=== PATIENT | male | born 1925 | race Caucasian/White ===

== ENCOUNTER 2017-02-12 00:53 | Emergency (ER) | payer MEDICARE, BC ==
[~2017-02-12] VITALS: Ht 175.3 cm; Wt 66.8 kg
[~2017-02-12 00:53] MED LIST: ADVAIR IH; ALLOPURINOL300 MG PO; AMBIEN 5MG TABLE5 MG PO; ASPIRIN 32325 MG/TAB PO; ASPIRIN 81M81 MG/TA2 PO; CEFTIN250 M1 PO; CEFTIN500 MG PO; CEPHALEXIN500 M1 PO; CLARITIN PO; CLEOCIN HCL300 MG PO; DESYREL 50MG50 MG PO; DIOVAN; FERROUS SULFATE65 MG PO; FLOMAX 0.40.4 MG/CAP PO; FOLIC ACID0.4 MG PO; HCTZ; HCTZ 25MG TAB25 MG PO; LEXAPRO 10MG10 MG PO; LOTRISONE 0.05%1 CRE TP; LOTRISONE CREAM15 GM TP; MIRALAX PA17 GM/Dose PO; MOTRIN 800800 MG/TAB PO; NORCO 325 MG-51 TAB PO; OMNICEF 300MG300 MG PO; PERCOCET 325 MG1 TA2 PO; PLAVIX 75MG TAB75 MG PO; PRAVACHOL 40MG40 MG PO; PRAVACHOL10 MG PO; PREDNISONE20 MG PO; PROVENTIL0.09 MG/A1 IH; RESTORIL 77.5 MG/CAP PO; RT ADVAIR 228 DISKUS IH; RT SPIRIVA18 MCG IH; SIMVISTATIN; SINGULAIR; SINGULAIR 110 MG/TAB PO; SINGULAIR10 MG PO; TOFRANIL 10MG T10 MG PO; TRIMETHOPRIM100 MG PO; TYLENOL 500MG500 MG PO; ULTRAM 50MG TAB50 MG PO; VITAMIN B-6100 MG PO; VITAMIN B6100 MG PO; VITAMIN C500 MG PO; XANAX .25M0.25 MG/TA PO; ZYLOPRIM 300MG300 MG PO
[2017-02-12 00:56] VITALS: TEMP 97.5
[2017-02-12 02:18] VITALS: BP 141/71; PULSE 69
== END 2017-02-12 02:20 | disposition home or self-care (01) ==
LOC: COL.ER 00:53
DX: S41.111A Laceration without foreign body of right upper arm, initial encounter (principal); S09.90XA Unspecified injury of head, initial encounter; S01.01XA Laceration without foreign body of scalp, initial encounter; W22.01XA Walked into wall, initial encounter; Y92.008 Other place in unspecified non-institutional (private) residence as the place of occurrence of the external cause; J44.9 Chronic obstructive pulmonary disease, unspecified; I10 Essential (primary) hypertension; R40.2422 Glasgow coma scale score 9-12, at arrival to emergency department; Z91.81 History of falling

== ENCOUNTER 2017-03-08 13:28 | Outpatient (CLI) | payer MEDICARE, BC ==
[~2017-03-08] VITALS: Ht 175.3 cm; Wt 68.0 kg
[2017-03-08 14:00] VITALS: BP 151/60; PULSE 83; TEMP 97.3
[2017-03-08 14:03] LABS: MEAN CELL VOLUME 95 fl (80.0-100.0); MEAN CORPUSCULAR HGB CONC 33 g/dl (33.0-37.0); PLATELET COUNT 118 K/mm3 (130-400); RED BLOOD COUNT 3.69 M/mm3 (4.20-5.60); REDCELL DISTRIBUTION WIDTH-CV 13.2 % (11.5-14.5); WHITE BLOOD COUNT 8.4 K/mm3 (4.8-10.8)
[2017-03-08 14:10] LABS: HEMATOCRIT 35.2 % (42.0-52.0); HEMOGLOBIN 11.5 g/dl (13.5-18.0); MEAN CORPUSCULAR HEMOGLOBIN 31 pg (27.0-31.0)
[2017-03-08 14:11] LABS: CALCIUM 9.4 mg/dL (8.4-10.2); CREATININE, serum 1.36 mg/dL (0.66-1.25); POTASSIUM 4.1 mmol/L (3.4-5.0)
[2017-03-08] MEDS ORDERED: LOPRESSOR 225 MG/TAB PO (16:22)
[2017-03-08] MEDS ORDERED: METAMUCIL3.4 GM/DOS PO (16:23)
[2017-03-08] MEDS ORDERED: MIRALAX PA17 GM/Dose PO (16:24)
== END 2017-03-08 18:47 | disposition home or self-care (01) ==
LOC: EUO 13:28
PROVIDERS: Internal Medicine
DX: Z01.89 Encounter for other specified special examinations (principal)
CPT/HCPCS: J7040

== ENCOUNTER 2017-03-12 12:33 | Emergency (ER) | payer MEDICARE, BC ==
[~2017-03-12] VITALS: Ht 175.3 cm; Wt 75.0 kg
[~2017-03-12 12:33] MED LIST changes: +LOPRESSOR 225 MG/TAB PO; +METAMUCIL3.4 GM/DOS PO
[2017-03-12 12:40] VITALS: TEMP 97.4
[2017-03-12] MEDS ORDERED: ZYLOPRIM 300MG300 MG PO (13:11)
[2017-03-12] MEDS ORDERED: ASPIRIN 81M81 MG/TA2 PO (13:11)
[2017-03-12] MEDS ORDERED: RT ADVAIR 228 DISKUS IH (13:12)
[2017-03-12] MEDS ORDERED: LEXAPRO 10MG10 MG PO (13:12)
[2017-03-12] MEDS ORDERED: LOPRESSOR 225 MG/TAB PO (13:12)
[2017-03-12] MEDS ORDERED: FLOMAX 0.40.4 MG/CAP PO (13:13)
[2017-03-12] MEDS ORDERED: PRAVACHOL 40MG40 MG PO (13:13)
[2017-03-12] MEDS ORDERED: SINGULAIR 110 MG/TAB PO (13:13)
[2017-03-12 13:14] LABS: ARTERIAL BLD GAS O2 SATURATION 94.9 % (92-100); ARTERIAL BLD GAS TCO2 CT 24.9; ARTERIAL BLOOD GAS BASE EXCESS -0.5 (-2-2); ARTERIAL BLOOD GAS HCO3 23.7 meq/L (22-26); ARTERIAL BLOOD GAS PHT 7.42 C (7.35-7.45); ARTERIAL BLOOD GAS PO2 79.4 mmHg (80-100); ARTERIAL BLOOD GAS PO2T 79.4 (80-100); ARTERIAL BLOOD GAS pH 7.42 (7.35-7.45)
[2017-03-12] MEDS ORDERED: DESYREL 50MG50 MG PO (13:14)
[2017-03-12 13:15] LABS: ATS? YES
[2017-03-12 13:23] LABS: BASO % 0.3 % (0.0-2.0); EOS # 0.4 (0.0-0.7); EOS % 5.9 % (0-4.0); GRAN # 4.8 (1.4-6.5); GRAN % 69.1 % (42.2-75.2); LYMPH # 1.1 (1.2-3.4); LYMPH % 15.9 % (20.0-51.0); MEAN CELL VOLUME 95 fl (80.0-100.0); MEAN CORPUSCULAR HGB CONC 32 g/dl (33.0-37.0); MEAN PLATELET VOLUME 11.5 fl (7.4-10.4); MONO # 0.6 (0.1-0.6); MONO % 8.5 % (1.7-9.3); PLATELET COUNT 112 K/mm3 (130-400); RED BLOOD COUNT 3.54 M/mm3 (4.20-5.60); REDCELL DISTRIBUTION WIDTH-CV 13.1 % (11.5-14.5)
[2017-03-12 13:25] LABS: HEMATOCRIT 33.7 % (42.0-52.0); HEMOGLOBIN 10.8 g/dl (13.5-18.0); MEAN CORPUSCULAR HEMOGLOBIN 31 pg (27.0-31.0)
[2017-03-12 13:28] LABS: ADJUSTED CALCIUM 9.5 mg/dL (8.4-10.2); ALBUMIN 3.4 gm/dL (3.5-5.0); BILIRUBIN,TOTAL 0.9 mg/dL (0.0-1.0); CREATININE, serum 1.27 mg/dL (0.66-1.25)
[2017-03-12 14:58] LABS: PH 7 (5-8); SQUAMOUS EPITHELIAL None Seen /hpf; URINE APPEARANCE Clear; URINE BACTERIA None Seen /hpf; URINE BILIRUBIN Negative (NEGATIVE); URINE BLOOD 3+ (NEGATIVE); URINE COLOR Yellow; URINE GLUCOSE Negative (NEGATIVE); URINE KETONE Negative (NEGATIVE); URINE RBC >50 /hpf; URINE UROBILINOGEN Negative (NEGATIVE)
[2017-03-12 14:59] LABS: URINE WBC 20-50 /hpf
[2017-03-12 16:25] VITALS: BP 175/95; PULSE 78
== END 2017-03-12 16:30 | disposition home or self-care (01) ==
LOC: COL.ER 12:33
PROVIDERS: Family Medicine
DX: E86.0 Dehydration (principal); R53.1 Weakness; R31.9 Hematuria, unspecified; I35.0 Nonrheumatic aortic (valve) stenosis; N40.1 Benign prostatic hyperplasia with lower urinary tract symptoms; R33.8 Other retention of urine
CPT/HCPCS: J7030

== ENCOUNTER 2017-04-11 21:36 | Inpatient (IN) | payer MEDICARE, BC ==
[~2017-04-11] VITALS: Ht 172.7 cm; Wt 62.5 kg
[2017-04-11 22:24] LABS: VENOUS BLOOD GAS BE 2.4 (-4-4); VENOUS BLOOD GAS SAO2 51.6 % (60-80)
[2017-04-11 22:25] LABS: VENOUS BLOOD GAS SITE VENIPUNCTURE
[2017-04-11 22:28] LABS: MEAN CELL VOLUME 93 fl (80.0-100.0); MEAN CORPUSCULAR HGB CONC 33 g/dl (33.0-37.0); MEAN PLATELET VOLUME 11.3 fl (7.4-10.4); PLATELET COUNT 153 K/mm3 (130-400); RED BLOOD COUNT 3.09 M/mm3 (4.20-5.60); REDCELL DISTRIBUTION WIDTH-CV 13.8 % (11.5-14.5)
[2017-04-11 22:30] LABS: HEMATOCRIT 28.8 % (42.0-52.0); HEMOGLOBIN 9.4 g/dl (13.5-18.0); MEAN CORPUSCULAR HEMOGLOBIN 30 pg (27.0-31.0)
[2017-04-11 22:31] LABS: ADD PATHOLOGY DIFF REVIEW NO
[2017-04-11 22:41] LABS: ADJUSTED CALCIUM 9.6 mg/dL (8.4-10.2); ALBUMIN 3.2 gm/dL (3.5-5.0); BILIRUBIN,TOTAL 0.8 mg/dL (0.0-1.0); CREATININE, serum 1.57 mg/dL (0.66-1.25); POTASSIUM 4.2 mmol/L (3.4-5.0)
[2017-04-11 22:46] LABS: BAND 23 % (0-10); NEUTROPHILS 60 % (42.0-75.2); TOTAL CELLS COUNTED 100
[2017-04-11 22:47] LABS: ERYTHROCYTE SEDIMENTATION RATE 65 mm/hr (0-30)
[2017-04-11 22:56] LABS: TROPONIN-I 0.058 ng/mL (0.000-0.034)
[2017-04-11 23:02] LABS: C-REACTIVE PROTEIN 11.1 mg/dL (0.0-0.9)
[2017-04-11 23:25] LABS: PH 5 (5-8); SQUAMOUS EPITHELIAL 0-2 /hpf; URINE APPEARANCE Cloudy; URINE BACTERIA Many /hpf; URINE BILIRUBIN Negative (NEGATIVE); URINE BLOOD 3+ (NEGATIVE); URINE COLOR Amber; URINE GLUCOSE Negative (NEGATIVE); URINE KETONE Negative (NEGATIVE); URINE RBC >50 /hpf; URINE WBC >50 /hpf
[2017-04-12] VITALS (7 sets, daily range): BP systolic 117–148; BP diastolic 46–73; PULSE 40–103; TEMP 97.6–100.1
[2017-04-12 07:05] LABS: BASO # 0.1 (0.0-0.2); BASO % 0.4 % (0.0-2.0); EOS # 0.4 (0.0-0.7); EOS % 2.6 % (0-4.0); GRAN # 10.2 (1.4-6.5); GRAN % 74.9 % (42.2-75.2); LYMPH % 14.4 % (20.0-51.0); MEAN CELL VOLUME 96 fl (80.0-100.0); MEAN CORPUSCULAR HGB CONC 31 g/dl (33.0-37.0); MEAN PLATELET VOLUME 11.7 fl (7.4-10.4); MONO % 7.1 % (1.7-9.3); PLATELET COUNT 141 K/mm3 (130-400); REDCELL DISTRIBUTION WIDTH-CV 13.8 % (11.5-14.5); WHITE BLOOD COUNT 13.6 K/mm3 (4.8-10.8)
[2017-04-12 07:06] LABS: HEMATOCRIT 27.8 % (42.0-52.0); HEMOGLOBIN 8.7 g/dl (13.5-18.0); MEAN CORPUSCULAR HEMOGLOBIN 30 pg (27.0-31.0)
[2017-04-12 07:18] LABS: ADJUSTED CALCIUM 9.6 mg/dL (8.4-10.2); ALBUMIN 2.7 gm/dL (3.5-5.0); BILIRUBIN,TOTAL 0.7 mg/dL (0.0-1.0); CALCIUM 8.6 mg/dL (8.4-10.2); CREATININE, serum 1.43 mg/dL (0.66-1.25); TOTAL PROTEIN 6.1 gm/dL (6.4-8.2)
[2017-04-13] VITALS (7 sets, daily range): BP systolic 126–220; BP diastolic 47–80; PULSE 42–98; TEMP 97.9–98.5
[2017-04-13 07:30] LABS: BASO % 0.4 % (0.0-2.0); EOS # 0.2 (0.0-0.7); EOS % 2.5 % (0-4.0); GRAN # 6.7 (1.4-6.5); LYMPH % 11.6 % (20.0-51.0); MEAN CELL VOLUME 94 fl (80.0-100.0); MEAN CORPUSCULAR HGB CONC 32 g/dl (33.0-37.0); MEAN PLATELET VOLUME 11.7 fl (7.4-10.4); MONO # 0.6 (0.1-0.6); MONO % 6.9 % (1.7-9.3); PLATELET COUNT 143 K/mm3 (130-400); RED BLOOD COUNT 3.03 M/mm3 (4.20-5.60); REDCELL DISTRIBUTION WIDTH-CV 13.5 % (11.5-14.5); WHITE BLOOD COUNT 8.6 K/mm3 (4.8-10.8)
[2017-04-13 07:34] LABS: HEMATOCRIT 28.5 % (42.0-52.0); MEAN CORPUSCULAR HEMOGLOBIN 30 pg (27.0-31.0)
[2017-04-13 07:43] LABS: CALCIUM 8.5 mg/dL (8.4-10.2); CREATININE, serum 1.07 mg/dL (0.66-1.25); POTASSIUM 3.8 mmol/L (3.4-5.0)
[2017-04-14] VITALS (7 sets, daily range): BP systolic 122–180; BP diastolic 49–73; PULSE 38–84; TEMP 98.2–98.9
[2017-04-14 07:25] LABS: HEMATOCRIT 27.8 % (42.0-52.0); HEMOGLOBIN 8.9 g/dl (13.5-18.0); MEAN CELL VOLUME 93 fl (80.0-100.0); MEAN CORPUSCULAR HEMOGLOBIN 30 pg (27.0-31.0); MEAN CORPUSCULAR HGB CONC 32 g/dl (33.0-37.0); MEAN PLATELET VOLUME 11.3 fl (7.4-10.4); PLATELET COUNT 141 K/mm3 (130-400); RED BLOOD COUNT 2.98 M/mm3 (4.20-5.60); REDCELL DISTRIBUTION WIDTH-CV 13.4 % (11.5-14.5); WHITE BLOOD COUNT 6.7 K/mm3 (4.8-10.8)
[2017-04-14 07:26] LABS: ADD PATHOLOGY DIFF REVIEW NO
[2017-04-14 07:38] LABS: CALCIUM 8.6 mg/dL (8.4-10.2); CREATININE, serum 1.01 mg/dL (0.66-1.25); POTASSIUM 3.5 mmol/L (3.4-5.0)
[2017-04-14 08:12] LABS: BAND 9 % (0-10); EOSINOPHIL 11 % (0-4); METAMYELOCYTE 1 % (0-0); NEUTROPHILS 53 % (42.0-75.2); PLATELET ESTIMATE NORMAL (NORMAL); TOTAL CELLS COUNTED 100
[2017-04-15] VITALS (8 sets, daily range): BP systolic 126–179; BP diastolic 52–81; PULSE 41–113; TEMP 97.5–98.5
[2017-04-16 04:06] VITALS: BP 114/77; BP 161/60; PULSE 77; PULSE 80; TEMP 98.2; TEMP 98.7
[2017-04-16 08:23] VITALS: BP 144/52; PULSE 63; TEMP 97.4
[2017-04-16] MEDS ORDERED: MONUROL 3 GM3 G/PKT PO (09:16)
[2017-04-16 10:36] VITALS: BP_SYST 8.04
== END 2017-04-16 12:08 | DRG 871 ==
LOC: COL.ER 21:36 → MEDICAL 23:55
PROVIDERS: Emergency Medicine; Family Medicine; Physician Assistant
DX: A41.89 Other specified sepsis (principal); I21.4 Non-ST elevation (NSTEMI) myocardial infarction; N39.0 Urinary tract infection, site not specified; J96.11 Chronic respiratory failure with hypoxia; E44.0 Moderate protein-calorie malnutrition; B96.1 Klebsiella pneumoniae [K. pneumoniae] as the cause of diseases classified elsewhere; Z95.2 Presence of prosthetic heart valve; J44.9 Chronic obstructive pulmonary disease, unspecified; J45.909 Unspecified asthma, uncomplicated; Z87.891 Personal history of nicotine dependence; F03.90 Unspecified dementia, unspecified severity, without behavioral disturbance, psychotic disturbance, mood disturbance, and anxiety; N18.9 Chronic kidney disease, unspecified; D64.9 Anemia, unspecified
CPT/HCPCS: 99223-AI; 99232-AI; 99233-AI; 99239; J1650; J2185; J7030

== ENCOUNTER → 2017-04-25 | Outpatient (REF) ==
[~2017-04-25] MED LIST changes: +LEXAPRO20 MG PO; +MONUROL 3 GM3 G/PKT PO; +NYAMYC100000 U/G TP; +PROAMATINE10 MG PO; +WELLBUTRIN 75MG75 MG PO
[2017-04-25 17:21] LABS: PH 6 (5-8); SQUAMOUS EPITHELIAL 0-2 /hpf; URINE APPEARANCE Clear; URINE BACTERIA None Seen /hpf; URINE BILIRUBIN Negative (NEGATIVE); URINE BLOOD 3+ (NEGATIVE); URINE COLOR Yellow; URINE GLUCOSE Negative (NEGATIVE); URINE KETONE Negative (NEGATIVE); URINE RBC 20-50 /hpf; URINE UROBILINOGEN Negative (NEGATIVE)
[2017-04-25 17:24] LABS: URINE WBC 20-50 /hpf
== END ==
LOC: ZCOL.LAB 17:09
DX: Z01.89 Encounter for other specified special examinations (principal)

== ENCOUNTER → 2017-05-01 | Outpatient (REF) | LOC: ZCOL.LAB 23:11 | DX: Z01.89 Encounter for other specified special examinations (principal) ==

== ENCOUNTER 2017-05-23 01:02 | Emergency (ER) | payer MEDICARE, BC ==
[~2017-05-23] VITALS: Ht 172.7 cm; Wt 68.2 kg
[~2017-05-23 01:02] MED LIST changes: -LEXAPRO20 MG PO; -NYAMYC100000 U/G TP; -PROAMATINE10 MG PO; -WELLBUTRIN 75MG75 MG PO
[2017-05-23 01:04] VITALS: TEMP 97.1
[2017-05-23 01:37] LABS: BASO % 0.5 % (0.0-2.0); EOS # 0.4 (0.0-0.7); EOS % 4.2 % (0-4.0); GRAN # 6.5 (1.4-6.5); GRAN % 73.7 % (42.2-75.2); LYMPH # 1.2 (1.2-3.4); LYMPH % 13.4 % (20.0-51.0); MEAN CELL VOLUME 94 fl (80.0-100.0); MEAN CORPUSCULAR HGB CONC 32 g/dl (33.0-37.0); MEAN PLATELET VOLUME 11.3 fl (7.4-10.4); MONO # 0.7 (0.1-0.6); MONO % 7.9 % (1.7-9.3); PLATELET COUNT 161 K/mm3 (130-400); RED BLOOD COUNT 3.47 M/mm3 (4.20-5.60); REDCELL DISTRIBUTION WIDTH-CV 14.7 % (11.5-14.5); WHITE BLOOD COUNT 8.9 K/mm3 (4.8-10.8)
[2017-05-23 01:39] LABS: HEMATOCRIT 32.7 % (42.0-52.0); HEMOGLOBIN 10.5 g/dl (13.5-18.0); MEAN CORPUSCULAR HEMOGLOBIN 30 pg (27.0-31.0)
[2017-05-23 01:45] LABS: ADJUSTED CALCIUM 9.8 mg/dL (8.4-10.2); ALBUMIN 3.7 gm/dL (3.5-5.0); BILIRUBIN,TOTAL 0.9 mg/dL (0.0-1.0); CALCIUM 9.6 mg/dL (8.4-10.2); CREATININE, serum 1.36 mg/dL (0.66-1.25); POTASSIUM 4.2 mmol/L (3.4-5.0); TOTAL PROTEIN 7.7 gm/dL (6.4-8.2)
[2017-05-23] MEDS ORDERED: PROAMATINE10 MG PO (02:14)
[2017-05-23] MEDS ORDERED: ZYLOPRIM 300MG300 MG PO (02:15)
[2017-05-23] MEDS ORDERED: RT ADVAIR 228 DISKUS IH (02:16)
[2017-05-23] MEDS ORDERED: ASPIRIN 81M81 MG/TA2 PO (02:16)
[2017-05-23] MEDS ORDERED: LOPRESSOR 225 MG/TAB PO (02:17)
[2017-05-23] MEDS ORDERED: SINGULAIR 110 MG/TAB PO (02:18)
[2017-05-23] MEDS ORDERED: PRAVACHOL 40MG40 MG PO (02:19)
[2017-05-23] MEDS ORDERED: FLOMAX 0.40.4 MG/CAP PO (02:19)
[2017-05-23] MEDS ORDERED: WELLBUTRIN 75MG75 MG PO (02:20)
[2017-05-23] MEDS ORDERED: DESYREL 50MG50 MG PO (02:21)
[2017-05-23] MEDS ORDERED: LEXAPRO20 MG PO (02:21)
[2017-05-23] MEDS ORDERED: NYAMYC100000 U/G TP (02:22)
[2017-05-23 02:25] LABS: PH 6 (5-8); SQUAMOUS EPITHELIAL None Seen /hpf; URINE APPEARANCE Hazy; URINE BACTERIA None Seen /hpf; URINE BILIRUBIN Negative (NEGATIVE); URINE BLOOD 3+ (NEGATIVE); URINE COLOR Yellow; URINE GLUCOSE Negative (NEGATIVE); URINE KETONE Negative (NEGATIVE); URINE RBC >50 /hpf; URINE UROBILINOGEN Negative (NEGATIVE); URINE WBC >50 /hpf
[2017-05-23 04:28] VITALS: BP 150/85; PULSE 74
== END 2017-05-23 04:39 | disposition short-term general hospital (02) ==
LOC: COL.ER 01:02
PROVIDERS: Emergency Medicine
DX: T82.330A Leakage of aortic (bifurcation) graft (replacement), initial encounter (principal); N39.0 Urinary tract infection, site not specified; E86.0 Dehydration; I11.0 Hypertensive heart disease with heart failure; I50.9 Heart failure, unspecified; N28.9 Disorder of kidney and ureter, unspecified; D64.9 Anemia, unspecified; J44.9 Chronic obstructive pulmonary disease, unspecified; F03.90 Unspecified dementia, unspecified severity, without behavioral disturbance, psychotic disturbance, mood disturbance, and anxiety; W19.XXXA Unspecified fall, initial encounter; Z87.891 Personal history of nicotine dependence; E78.5 Hyperlipidemia, unspecified
CPT/HCPCS: J0696; J7030; Q9967

== ENCOUNTER 2017-10-13 11:56 | Emergency (ER) | payer MEDICARE, BC ==
[~2017-10-13] VITALS: Ht 172.7 cm; Wt 45.5 kg
[~2017-10-13 11:56] MED LIST changes: +LEXAPRO20 MG PO; +NYAMYC100000 U/G TP; +PROAMATINE10 MG PO; +WELLBUTRIN 75MG75 MG PO
[2017-10-13 12:02] VITALS: TEMP 98.9
[2017-10-13 14:15] VITALS: BP 118/74; PULSE 72
[2017-10-13] MEDS ORDERED: PROAMATINE10 MG PO (15:03)
[2017-10-13] MEDS ORDERED: TOPROL XL 25MG25 MG PO (15:03)
[2017-10-13] MEDS ORDERED: ASPIRIN 81M81 MG/TA2 PO (15:03)
[2017-10-13] MEDS ORDERED: FLOMAX 0.40.4 MG/CAP PO (15:04)
[2017-10-13] MEDS ORDERED: PRAVACHOL 40MG40 MG PO (15:04)
[2017-10-13] MEDS ORDERED: SINGULAIR 110 MG/TAB PO (15:04)
== END 2017-10-13 14:20 | disposition home or self-care (01) ==
LOC: COL.ER 11:56
DX: K56.41 Fecal impaction (principal); F03.90 Unspecified dementia, unspecified severity, without behavioral disturbance, psychotic disturbance, mood disturbance, and anxiety; Z79.82 Long term (current) use of aspirin